=== PATIENT | male | born 1990 | race Caucasian/White ===

== ENCOUNTER 2017-10-17 09:38 | Emergency (ER) | payer OTHER ==
[2017-10-17 10:23] LABS: ABSOLUTE BASOPHIL COUNT 0 /CUMM (0.0-0.2); ABSOLUTE EOSINOPHIL COUNT 0.1 /CUMM (0.0-0.7); ABSOLUTE GRANULOCYTE CT 3.8 /CUMM (1.4-6.5); ABSOLUTE MONOCYTE COUNT 0.5 /CUMM (0.10-0.60); BASOPHIL % 0.4 % (0.0-2.0); EOSINOPHIL % 2.1 % (0-5); GRANULOCYTE % 69.7 % (42.2-75.2); MEAN CORPUSCULAR HGB CONC 35.1 G/DL (33.0-37.0); MEAN CORPUSCULAR VOLUME 91.1 FL (80.0-94.0); MEAN PLATELET VOLUME 7.3 FL (7.4-10.4); PLATELET COUNT 228 /CUMM (130-400); RBC DISTRIBUTION WIDTH 13.4 % (11.5-14.5); RED BLOOD CELL CT 4.61 /CUMM (4.70-6.10); WHITE BLOOD CELL COUNT 5.4 /CUMM (4.8-10.8)
--- NOTE | 2017-10-17 10:35 | ED GENERAL ADULT ---
See Addendum History of Present Illness General Chief Complaint: ETOH/Drug Related Complaint Stated Complaint: PCP DETOX Source: patient, family, old records Exam Limitations: no limitations Vital Signs & Intake/Output Vital Signs & Intake/Output Vital Signs Date Time Temp Pulse Resp B/P B/P Pulse O2 O2 Flow FiO2 Mean Ox Delivery Rate 10/17 1834 97.8 79 20 121/69 99 Room Air 10/17 1659 97.5 75 20 95/60 99 Room Air 10/17 1506 98.7 51 20 110/70 98 Room Air 10/17 1108 98.1 74 18 112/75 100 Room Air 10/17 0956 98.2 75 12 103/65 98 Room Air Allergies Coded Allergies: No Known Allergies (10/17/17) Triage Note: 26M ARRIVES AMS MOTHER REPORTS HE NEEDS DETOX, POLYSUB ABUSE. INITIALLY TOLD HER HE WAS INTERESTED IN DETOX BUT PT IS UNABLE TO CONVERSATE IN TRIAGE DUE TO SEDATION FROM ILLICIT DRUG USE. UNABLE TO ANSWER QUESTIONS, FOUND SLEEPING IN WAITING ROOM. MOTHER REPORTS HE IS KNOWN PCP USER. CURRENTLY IN TREATMENT COUNSELING AT [facility] UNSTEADY GAIT AND STRUGGLES TO KEEP EYES OPEN WHILE WALKING TO [place] [address]. DECLINED WHEELCHAIR OFFERED. SECURITY NOTIFIED FOR WANDING AND CHANGING Triage Nurses Notes Reviewed? yes Onset: Abrupt Duration: day(s): (1), constant, continues in ED, getting worse Timing: recent history Injury Environment: home Severity: mild, moderate No Modifying Factors: none HPI: 26-year-old male history of polysubstance abuse presents for evaluation of drug abuse and intoxication. Mom reports that he was found outside his girlfriend's house heavily intoxicated after a night of partying. He admits to PCP use. He also of cocaine and alcohol use. Patient is intoxicated and lethargic and cannot contribute much to history. He does deny being suicidal or homicidal. He states he is just tired and wants to be left alone. (Samir Miranda) Reconcile Medications No Known Home Medications (Shaan Sims) Past History Travel History Traveled to [place] past 21 day No Medical History Any Pertinent Medical History? see below for history Psychiatric: alcohol dependence, depression, substance abuse Surgical History Surgical History: non-contributory Psychosocial History What is your primary language Estonian Tobacco Use: Cognitive Impairment Family History Hx Contributory? No (Samir Miranda) Review of Systems Review of Systems Constitutional: Reports: no symptoms. EENTM: Reports: no symptoms. Respiratory: Reports: no symptoms. Cardiovascular: Reports: no symptoms. GI: Reports: no symptoms. Genitourinary: Reports: no symptoms. Musculoskeletal: Reports: no symptoms. Skin: Reports: no symptoms. Neurological/Psychological: Reports: see HPI. Hematologic/Endocrine: Reports: no symptoms. Immunologic/Allergic: Reports: no symptoms. All Other Systems: Reviewed and Negative (Samir Miranda) Physical Exam Physical Exam General Appearance: well developed/nourished, no apparent distress, alert, awake , lethargic, intoxicated, patient is alert to loud verbamultiple to loud verbal stimulil stimuli Head: atraumatic, normal appearance Eyes: Bilateral: normal appearance, EOMI. Ears, Nose, Throat: normal pharynx, normal ENT inspection, hearing grossly normal Neck: normal inspection, supple, full range of motion Respiratory: normal breath sounds, chest non-tender, no respiratory distress, lungs clear Cardiovascular: regular rate/rhythm Peripheral Pulses: 2+ radial (R), 2+ radial (L) Gastrointestinal: soft, non-tender Back: normal inspection, normal range of motion, no vertebral tenderness Extremities: normal inspection, normal range of motion, no edema Neurologic/Psych: no motor/sensory deficits, awake, alert, oriented x 3, normal gait Skin: intact, normal color, warm/dry Lymphatic: no anterior cervical cortes Core Measures ACS in differential dx? No CVA/TIA Diagnosis: No Sepsis Present: No Sepsis Focused Exam Completed? No (Samir Miranda) Progress Differential Diagnoses I considered the following diagnoses in my evaluation of the patient: [Drug intoxication, drug withdrawal, electrolyte abn, sepsis] Plan of Care: Orders Procedure Date/time Status Continuous Observation Monitor 10/18 0700 Active Continuous Observation Monitor 10/18 0300 Active Continuous Observation Monitor 10/17 2300 Active Continuous Observation Monitor 10/17 1900 Active ED CRISIS PSYCH CONSULT 10/17 1852 Active URINE DRUG SCREEN FOR ER ONLY 10/17 1000 Complete URINALYSIS 10/17 1000 Complete MAGNESIUM 10/17 1000 Complete ETHANOL 10/17 1000 Complete COMPREHENSIVE METABOLIC PANEL 10/17 1000 Complete CBC WITHOUT DIFFERENTIAL 10/17 1000 Complete Laboratory Tests 10/17/17 1233: Urine Opiates Screen < 100, Methadone Screen < 40, Barbiturate Screen < 60, Ur Phencyclidine Scrn > 72.00 H, Amphetamines Screen > 1450 H, U Benzodiazepines Scrn < 85, Urine Cocaine Screen > 1000 H, Urine Cannabis Screen 78.10 H, Urine Color YEL, Urine Clarity HAZY H, Urine pH 6.0, Ur Specific [place] 1.025, Urine Protein NEG, Urine Ketones NEG, Urine Nitrite NEG, Urine Bilirubin NEG, Urine Urobilinogen 0.2, Ur Leukocyte Esterase NEG, Ur Microscopic SEDIMENT EXAMINED, Urine RBC RARE, Urine WBC 1-3 H, Ur Epithelial Cells RARE, Urine Mucus MANY H, Urine Hemoglobin NEG, Urine Glucose NEG 10/17/17 1010: Anion Gap 9, Estimated GFR > 60, BUN/Creatinine Ratio 13.3, Glucose 90, Calcium 9.5, Magnesium 2.0, Total Bilirubin 0.2, AST 18, ALT 23, Alkaline Phosphatase 92 , Total Protein 6.5, Albumin 3.8, Globulin 2.7, Albumin/Globulin Ratio 1.4, CBC w Diff NO MAN DIFF REQ, RBC 4.61 L, MCV 91.1, MCH 32.0 H, MCHC 35.1, RDW 13.4, MPV 7.3 L, Gran % 69.7, Lymphocytes % 19.2 L, Monocytes % 8.6, Eosinophils % 2.1, Basophils % 0.4, Absolute Granulocytes 3.8, Absolute Lymphocytes 1.0 L, Absolute Monocytes 0.5, Absolute Eosinophils 0.1, Absolute Basophils 0, Serum Alcohol < 10.0 Patient is here intoxicated with history of polysubstance abuse. He appears lethargic but is arousable. His vitals are stable. He denies being suicidal or homicidal. Labs ordered patient will be reevaluated after sobering up. Patient signed out to Shaan Cason pending re-eval Initial ED EKG: none (Samir Miranda) Hand-Off Endorsed To: Juventino Trotter MD Endorsed Time: 1925 Pending: consult (crisis) (Shaan Sims) Departure Departure Disposition: STILL A PATIENT Condition: Stable Clinical Impression Primary Impression: Polysubstance abuse Referrals: Patient Has No Primary Care Dr (PCP/Family) Departure Forms: Customer Survey General Discharge Information (Samir Miranda) Departure Prescriptions: Current Visit Scripts No Known Home Medications (Shaan Sims) PA/DESSERT CUP MACHINE FEEDER Co-Sign Statement Statement: ED Attending supervision documentation- [] I saw and evaluated the patient. I have also reviewed all the pertinent lab results and diagnostic results. I agree with the findings and the plan of care as documented in the PA's/DESSERT CUP MACHINE FEEDER's documentation. [X] I have reviewed the ED Record and agree with the PA's/DESSERT CUP MACHINE FEEDER's documentation. [] Additions or exceptions (if any) to the PAs/DESSERT CUP MACHINE FEEDER's note and plan are summarized below: [] (Sam Ken DO) Critical Care Note Critical Care Note Critical Care Time: non-applicable (Samir Miranda)
[2017-10-17 18:34] VITALS: BP 121/69
--- NOTE | 2017-10-17 20:35 | ED PSYCH CRISIS CONSULTATION ---
Crisis Consult Basic Assessment Date of Consult: 10/17/17 Responsible Person/Accompanied By: Skye Payne - mother Insurance Authorization: Insurance #1: Insurance name: LYNDA RDZ Phone number: Policy number: [id number] Group number: Authorization number: ED Provider: Patient's ED Provider: Juventino Trotter MD Primary Care Physician: Patient's PCP: Patient Has No Primary Care Dr PCP's Phone Number: Current Psychiatrist: n/a Chief Complaint: ETOH/Drug Related Complaint Patient's Quote: "I don't know, drugs?" Present Illness: Pt is a 26 year old male who presents in the ED with his mother. Mother brought pt to the ED after she found him passed out this morning after a night of partying. Upon crisis arrival, pt is sleepy and speaks very softly and mumbled. He continued to report he wanted to go home. Pt denies SI, HI, AH/VH at this time. He denies any prior suicide attempts. Pt reports he did not make any suicidal statements and does not want to hurt himself in any way, he just wants to go home and go to sleep. Pt identified that he has no prior mental health treatment, but was in rehab in 2013 in [place]. He completed rehab, but quickly relapsed after. Pts tox screen was positive for PCP, Cocaine, Cannabis and Amphetamines. Pt also drinks alcohol daily. Pt was slow to respond to many questions and this sheet writer needed to wake him to respond. Pt did share that he has a 1 year old daughter and he usually lives with his girlfriend and their baby. 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 Pt reports he does feel depressed rating his depression as a 7/10 with 10 being the most severe, but again re-iterating that he does not want to harm himself, he just wants to go home and go to sleep. C-SSRA completed and the following risk factors were identified: feeling hopeless, helpless and trapped at times, feeling depressed, impulsive behavior, substance use, perceives himself as a burden, aggressive behavior. Pt identified the following protective factors: identifies reasons for living, responsibility to others, supportive family. Crisis met with pts mother, Skye Payne, who reports that pt has had a problem with drugs since he graduated high school in 2007. Mother reported that pt started with marijuana but quickly moved on to other drugs. She reports he has been arrested many times on drug related charges and in lieu of going to detention in 2012 for charges related to Daisy he went to rehab in [place]. Mom reports that pt struggles to hold down a job and does well for a little while, and then slips again and goes on drug binges. Mom reported that pt did not make suicidal statements today, but did say something along the lines of I dont want to live like this anymore on Sunday10/14/17. Mom reports she said that pt was suicidal because someone told her that if he was suicidal he would get into detox. Mom is not worried about pts safety except that sometimes pt will drive his car while intoxicated, but mom has his car keys at this time. Pt went for an intake at [facility] last week and was accepted into the IOP program there. Mom is agreement with the plan to discharge pt and have him attend his IOP tomorrow 10/18/17 @ 9: 30am at [facility]. Patient's Address: [address] [place] [address] Other Phone Number: Who Do You Live With? Significant Other Family/Informants Interviewed: Skye Payne, mother [phone] Allergies - Coded Allergies: No Known Allergies (10/17/17) Current Medications - No Known Home Medications Laboratory Results: Laboratory Tests 10/17/17 1233: Urine Opiates Screen < 100, Methadone Screen < 40, Barbiturate Screen < 60, Ur Phencyclidine Scrn > 72.00 H, Amphetamines Screen > 1450 H, U Benzodiazepines Scrn < 85, Urine Cocaine Screen > 1000 H, Urine Cannabis Screen 78.10 H, Urine Color YEL, Urine Clarity HAZY H, Urine pH 6.0, Ur Specific [place] 1.025, Urine Protein NEG, Urine Ketones NEG, Urine Nitrite NEG, Urine Bilirubin NEG, Urine Urobilinogen 0.2, Ur Leukocyte Esterase NEG, Ur Microscopic SEDIMENT EXAMINED, Urine RBC RARE, Urine WBC 1-3 H, Ur Epithelial Cells RARE, Urine Mucus MANY H, Urine Hemoglobin NEG, Urine Glucose NEG 10/17/17 1010: Anion Gap 9, Estimated GFR > 60, BUN/Creatinine Ratio 13.3, Glucose 90, Calcium 9.5, Magnesium 2.0, Total Bilirubin 0.2, AST 18, ALT 23, Alkaline Phosphatase 92 , Total Protein 6.5, Albumin 3.8, Globulin 2.7, Albumin/Globulin Ratio 1.4, CBC w Diff NO MAN DIFF REQ, RBC 4.61 L, MCV 91.1, MCH 32.0 H, MCHC 35.1, RDW 13.4, MPV 7.3 L, Gran % 69.7, Lymphocytes % 19.2 L, Monocytes % 8.6, Eosinophils % 2.1, Basophils % 0.4, Absolute Granulocytes 3.8, Absolute Lymphocytes 1.0 L, Absolute Monocytes 0.5, Absolute Eosinophils 0.1, Absolute Basophils 0, Serum Alcohol < 10.0 Past History Past Medical History Psychiatric: alcohol dependence, depression, substance abuse Past Surgical History Surgical History: non-contributory Psychosocial History Strengths/Capabilities: Pt's mother is supportive. Pt is also involved in treatment with [facility] Physical Limitations (Interventions): none Psychiatric Treatment History Psych Treatment Psychiatric Treatment Yes Inpatient Treatment No Outpatient Treatment Yes Location of Treatment [facility] Reason for Treatment depression and substance abuse Dates of Treatment current Response to Treatment pt has missed IOP appointments this week, but plans on attending tomorrow for the first time @ 9:30am Diagnosis by History: none reported. Substance Use/Abuse History Drug Use/Abuse 1 Substances Used/Abused Yes Substance Used/Abused Alcohol First Use high school Last Used last night How much used/taken unknown How often somtimes daily For how long on and off since high school Route of use oral Drug Use/Abuse 2 Substances Used/Abused Yes Substance Used/Abused Other (list in comments) (PCP) First Use recently, maybe a few months ago Last Used last night How much used/taken unsure How often unclear For how long unclear Route of use inhalant Drug Use/Abuse 3 Substances Used/Abused Yes Substance Used/Abused Marijuana First Use high school Last Used unclear How much used/taken unclear How often unclear For how long unclear Route of use inhalant Drug Use/Abuse 4 Substances Used/Abused Yes Substance Used/Abused Other (list in comments) (ecstacy) First Use unclear Last Used unclear How much used/taken unclear How often unclear For how long unclear Route of use oral Drug Use/Abuse 5 Substances Used/Abused Yes Substance Used/Abused Cocaine First Use "years ago" Last Used possibly yesterday How much used/taken unsure How often unclear For how long unclear Route of use snorting Substance Abuse Treatment Substance Abuse Treatment Past Substance Abuse [place] Yes Inpatient Treatment Yes Outpatient Treatment Yes Location of Treatment Drug rehab in [place] Reason for Treatment polysubstance absue, ETOH Dates of Treatment 2012 Response to Treatment Pt relapsed shortly after being relseased. He was admitted to rehab for about 1 month. Current Mental Status Mental Status Orientation: pt kept falling asleep during evaluation, but was aware he was in the hospital. Affect: Depressed, Flat Speech: Mumbled, Slurred, Soft Neuro-vegetative: Concentration Poor, Energy Decreased Appearance Appearance- Dress/Hygiene: Pt is dressed in blue hosptial scrubs. He lays in his bed underneath his covers and continues to fall asleep during this interview. He has facial hair and visable tattoos on his arms. Behaviors Thought Process: WNL Thought Content: WNL Memory: Impaired Insight: Fair SI/HI Risk Assessment Past Suicidal Ideation/Attempts Yes Current Suicidal Ideation/Att No Past Homicidal Ideation/Att: No Current Homicidal Ideation/Attempts No Degree of Intent: None Danger To: none Gravely Disabled: n/a Risk Factors: access to lethal means, substance abuse, poor impulse control, male Lethality Ratin (mild) PTSD Checklist PTSD Done? 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 Izaguirre Date Disposition Established: 10/17/17 Time Disposition Established: 2029 Plan for Disposition - Modality: IOP Facility: [facility] Follow-up Appt Date: 10/18/17 Follow-Up Appt Time: 929 Contact: Jessica Prado [phone] Rationale for Disposition: Crisis spoke with Dr. Oquendo who does not beleive that pt meets inpatient LOC criteria. Pt denies SI, HI, VH/AH. Pt will be discharged and go home with his mother who will monitor him and be home with him tracie. She will transport him to his appointment at [facility] 10/18/17 @ 9:30am. Referrals Patient Has No Primary Care Dr (PCP/Family)
== END 2017-10-17 20:20 ==
LOC: ERH 09:38
PROVIDERS: Physician Assistant Medical
DX: F16.10 Hallucinogen abuse, uncomplicated (principal); F14.10 Cocaine abuse, uncomplicated; F10.10 Alcohol abuse, uncomplicated
CPT/HCPCS: 80307; 81001; G0463; G0480